=== PATIENT | male | born 1985 | race American Indian/Alaskan Native ===

== ENCOUNTER 2017-03-29 02:50 | Emergency (ER) | payer SELFPAY ==
[2017-03-29 04:15] LABS: Basophils # (Auto) 0.1 K/mm3 (0.0-0.1); Basophils % (Auto) 1.1 % (0.0-1.8); Hematocrit 33.4 % (35.5-45.6); Hemoglobin 10.5 gm/dl (11.8-15.2); Lymphocytes # (Auto) 2.4 K/mm3 (1.2-5.4); Lymphocytes % (Auto) 19.9 % (13.4-35.0); Mean Corpuscular HGB Conc 31 % (32-34); Monocytes # (Auto) 1.1 K/mm3 (0.0-0.8); Monocytes % (Auto) 9.1 % (0.0-7.3); Red Blood Count 5.17 M/mm3 (3.65-5.03); Red Cell Distribution Width 19.4 % (13.2-15.2)
[2017-03-29 04:17] LABS: Mean Corpuscular Hemoglobin 20 pg (28-32); Mean Corpuscular Volume 65 fl (84-94)
[2017-03-29 04:18] LABS: Platelet Count 644 K/mm3 (140-440)
[2017-03-29 04:22] LABS: BUN/Creatinine Ratio 10; Blood Urea Nitrogen 12 mg/dL (9-20); Calcium 8.8 mg/dL (8.4-10.2); Hemolysis Index 4
--- NOTE | 2017-03-29 06:16 | Emergency Department Report ---
HPI - General Chief Complaint: Psych Time Seen by Provider: 03/29/17 03:40 - HPI HPI: This is a 31-year-old male presents to the emergency Department via PD for a mental health evaluation. The patient is up here from a [facility] and was at a convenience store when it appears as if the collect on delivery clerk suspected the patient of something, whether it be intoxication or psychosis, but it prompted him to call the police. When the police got there they felt that the patient was acting abnormal and paranoid. They wrote that his behavior was observed to be "sweaty, constricted pupils, paranoia, possible current drug usage." Since being in the emergency department, the patient is awake and alert. He admits to drinking some alcohol and using cocaine this evening. He says that when the police arrived he got scared that he was in trouble for something but says that he did not do anything wrong. He denies any auditory or visual hallucinations, suicidal or homicidal ideations. He denies any past medical or psychiatric history. ED Past Medical Hx - Past Medical History Previous Medical History?: Yes Additional medical history: crack cocaine abuse - Surgical History Past Surgical History?: No - Social History Smoking Status: Current Every Day Smoker Substance Use Type: Cocaine - Medications Home Medications: Home Medications Medication Instructions Recorded Confirmed Last Taken Type No Known Home Medications [No 03/29/17 03/29/17 Unknown History Reported Home Medications] ED Review of Systems ROS: Stated complaint: MH EVAL Other details as noted in HPI Comment: All other systems reviewed and negative Constitutional: denies: chills, fever Eyes: denies: eye pain, eye discharge, vision change ENT: denies: ear pain, throat pain Respiratory: denies: cough, shortness of breath, wheezing Cardiovascular: denies: chest pain, palpitations Gastrointestinal: denies: abdominal pain, nausea, diarrhea Genitourinary: denies: urgency, dysuria Musculoskeletal: denies: back pain, joint swelling, arthralgia Skin: denies: rash, lesions Neurological: denies: headache, weakness, paresthesias Physical Exam - Physical Exam Vital Signs: Vital Signs 03/29/17 03:36 Temperature 98.8 F Pulse Rate 98 H Respiratory 18 Rate Blood Pressure 160/96 [Left] O2 Sat by Pulse 97 Oximetry Physical Exam: GENERAL: The patient is well-developed well-nourished. HENT: Normocephalic. Atraumatic. Patient has moist mucous membranes. EYES: Extraocular motions are intact. Pupils equal reactive to light bilaterally. NECK: Supple. Trachea is midline. CHEST/LUNGS: Clear to auscultation. There is no respiratory distress noted. HEART/CARDIOVASCULAR: Regular. There is no tachycardia. There is no murmur. ABDOMEN: Abdomen is soft, nontender. Patient has normal bowel sounds. There is no abdominal distention. SKIN: Skin is warm and dry. NEURO: The patient is awake, alert, and oriented. The patient is cooperative. The patient has no focal neurologic deficits. The patient has normal speech and gait. MUSCULOSKELETAL: There is no tenderness or deformity. There is no limitation range of motion. There is no evidence of acute injury. ED Course Vital Signs 03/29/17 03:36 Temperature 98.8 F Pulse Rate 98 H Respiratory 18 Rate Blood Pressure 160/96 [Left] O2 Sat by Pulse 97 Oximetry ED Medical Decision Making - Lab Data Result diagrams: 03/29/17 03:48 03/29/17 03:48 - Medical Decision Making The patient has been awake and alert since he has been in the emergency department. He denies any psychiatric history. He denies any suicidal ideations, homicidal ideations or any hallucinations. He is calm and appropriate and appears to have the capacity to make his own medical decisions. He does not appear acutely intoxicated. His labs thus far been unremarkable including a negative blood alcohol level. We do not currently have any urine for a urine drug screen but I do not feel that that is a reason to keep him in the emergency department if he chooses to go. He was seen by the psych regional project manager , Wan, who did his evaluation and agrees with the patient does not appear to be a candidate to be made a 1013. The patient says that he has a ride that will come and pick him up from the hospital. He is been encouraged to stay away from any further illicit drug use or any alcohol abuse. He has been encouraged to return to the emergency department with any concerns over the knee acute distress. Critical Care Time: No Critical care attestation.: If time is entered above; I have spent that time in minutes in the direct care of this critically ill patient, excluding procedure time. ED Disposition Clinical Impression: Encounter for psychiatric assessment Hypertension Qualifiers: Hypertension type: essential hypertension Qualified Code(s): I10 - Essential ( primary) hypertension Disposition: DC- TO HOME OR SELFCARE Is pt being admited?: No Condition: Stable Instructions: Hypertension (ED) Additional Instructions: Please stay away from any further illicit drug use or alcohol abuse. Try to stay away from foods that are high in salt and caffeinated products to help with the elevated blood pressure down today. Return to the emergency department with any concerns or with any acute distress. Referrals: JAYA RAMIREZ MD [Primary Care Provider] - 3-5 Days [facility] [Outside] - 3-5 Days Time of Disposition: 06:19
[2017-03-29 06:48] VITALS: BP 133/72
== END 2017-03-29 06:48 | disposition home or self-care (01) ==
LOC: EDBD → ED 02:50 → EEVIPCON 02:50 → ED 06:48
DX: Z00.8 Encounter for other general examination (principal); I10 Essential (primary) hypertension; F17.200 Nicotine dependence, unspecified, uncomplicated; F14.10 Cocaine abuse, uncomplicated
CPT/HCPCS: 36415; 80048; 85025; 99284; G0480; 80320